=== PATIENT | female | born 1985 | race Caucasian/White ===

== ENCOUNTER 2020-04-05 02:40 | Emergency (ER) | payer OTHER ==
[~2020-04-05] VITALS: Ht 160 cm; Wt 58.5 kg
[~2020-04-05 02:40] MED LIST: BACTRIM DS TAB1 EACH PO; BIRTH CONTROL PILL PO; COLACE100 MG PO; IBUPROFEN 800800 M1 PO; KEFLEX500 MG PO; NORCO 5-325 TA1 EACH PO; PHENAZOPYRIDIN200 M2 PO; ULTRAM 50MG TAB50 MG PO
[2020-04-05] MEDS ORDERED: PROAIR HFA8.5 GM INH ×2 (02:51→04:07)
[2020-04-05] MEDS ORDERED: SPRINTEC1 EACH PO (02:51)
[2020-04-05 03:14] LABS: ABSOLUTE LYMPHOCYTES 1.4 thou/uL (0.8-5.3); ABSOLUTE MONOCYTES 0.6 thou/uL (0.0-1.2); ABSOLUTE NEUTROPHILS 8.3 thou/uL (1.6-8.1); BASOPHILS 0.2 %; EOSINOPHILS 0.3 %; HEMATOCRIT 40.4 % (37.0-47.0); HEMOGLOBIN 13.5 gm/dL (12.0-15.0); LYMPHOCYTES 13.7 %; MCH 30.3 pg (26.0-34.0); MCHC 33.4 g/dL (28.0-37.0); MCV 90.5 fL (80.0-100.0); MONOCYTES 5.8 %; MPV 7.6 fl. (7.2-11.1); NUCLEATED RBCS 0 /100WBC; PLATELET COUNT* 309 thou/uL (150-400); RBC 4.47 mil/uL (4.20-5.00); RDW-CV 13.1 % (10.5-14.5); WBC 10.3 thou/uL (4.0-11.0)
[2020-04-05 03:31] LABS: CALCIUM 9.6 mg/dL (8.5-10.1); CREATININE 0.7 mg/dL (0.6-1.3); POTASSIUM 3.7 mmol/L (3.5-5.1)
[2020-04-05 03:36] LABS: ALBUMIN 4.4 g/dL (3.4-5.0); TOTAL BILIRUBIN 0.4 mg/dL (<0.1-1.0); TOTAL PROTEIN 8.6 g/dL (6.4-8.2)
[2020-04-05] MEDS ORDERED: TRAMADOL 50 MG50 MG PO (04:07)
[2020-04-05 04:24] VITALS: BP 123/78
--- NOTE | 2020-04-05 14:39 | EKG ---
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: MARK : 1985 Requested By: Virginia Ford Order Number: [id number] MD: Joshua Davis Measurements Intervals [place] Rate: 90 P: 105 [place]: 157 QRS: 122 QRSD: 87 T: 147 QT: 358 QTc: 438 Interpretive Statements Right and left arm electrode reversal, interpretation assumes no reversal Sinus rhythm Probable left atrial enlargement Probable lateral infarct, age indeterminate No previous ECG available for comparison Electronically Signed On 04-05-2020 14:38:53 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
== END 2020-04-05 04:24 | disposition home or self-care (01) ==
LOC: M.ERS 02:40
PROVIDERS: Emergency Medicine
DX: M79.10 Myalgia, unspecified site (principal); F43.9 Reaction to severe stress, unspecified; J45.909 Unspecified asthma, uncomplicated; Z79.899 Other long term (current) drug therapy; Z88.1 Allergy status to other antibiotic agents; Z88.5 Allergy status to narcotic agent